=== PATIENT | male | born 1955 | race Caucasian/White ===

== ENCOUNTER → 2021-02-12 | Outpatient (CLI) | payer MEDICARE ==
--- NOTE | 2021-02-12 12:27 | REPPI ---
INDICATION: elevated PSA. COMPARISON: None. TECHNIQUE: Transrectal prostate ultrasound performed, with ultrasound guidance provided for Dr. Cuevas who performed ultrasound-guided biopsy. FINDINGS: Prostate measures 4.8 x 3.2 x 4.9 cm, total volume 40.1 mL. Echotexture is heterogeneous with scattered cysts and calcifications. There is a nodule in the left mid apex 8 x 4 x 6 mm. Seminal vesicles are symmetrical. IMPRESSION: Prostate ultrasound as above, ultrasound guidance was provided for Dr. Cuevas who performed ultrasound-guided biopsy of the prostate. <Electronically signed by Fco Londono > 02/12/21 [id number]
== END ==
LOC: M SMT PRO 10:47
PROVIDERS: ATTEND Urology
DX: R97.20 Elevated prostate specific antigen [PSA] (principal)
CPT/HCPCS: 55700; 76872; 76942; G0416

== ENCOUNTER → 2025-04-06 | Outpatient (CLI) | payer MEDICARE ==
[~2025-04-06] MED LIST: PROHANCE 279.3MG/ML 15ML VIAL As Ordered ONE; PROHANCE 279.3MG/ML 5ML VIAL As Ordered ONE
== END ==
LOC: M RAD 15:04
PROVIDERS: ATTEND Urology
DX: N40.0 Benign prostatic hyperplasia without lower urinary tract symptoms (principal); N42.89 Other specified disorders of prostate
CPT/HCPCS: 72197; A9576